=== PATIENT | male | born 1950 | race Caucasian/White ===

== ENCOUNTER → 2022-01-22 | Outpatient (CLI) | payer MEDICARE ==
[2022-01-22 13:16] VITALS: BMI 33.6
== END ==
LOC: EDSTATUS 11:00 → DBWHC3 11:01
PROVIDERS: ATTEND Nurse Practitioner Acute Care
DX: E11.9 Type 2 diabetes mellitus without complications (principal); Z88.8 Allergy status to other drugs, medicaments and biological substances
CPT/HCPCS: G0108 ×3